=== PATIENT | male | born 1960 | race Caucasian/White ===

== ENCOUNTER 2017-09-17 22:31 | Emergency (ER) | payer OTHER ==
[2017-09-17] MEDS ORDERED: HYDROCODONE/APAP 5/325 TAB PO ONE (22:48)
[2017-09-17] MEDS ORDERED: traMADol 50 MG TAB PO ONE (22:49)
--- NOTE | 2017-09-17 22:49 | EDPHY ---
H & P Stated Complaint: fall off ladder on to foot r heel pain Source: Patient - Personal History Current Tetanus/Diphtheria Vaccine: Yes Current Tetanus Diphtheria and Acellular Pertussis (TDAP): Yes - Medical/Surgical History Hx Asthma: No Hx Chronic Respiratory Disease: No Hx Diabetes: No Hx Cardiac Disease: No Hx Renal Disease: No Hx Cirrhosis: No Hx Alcoholism: No Hx HIV/AIDS: No Hx Splenectomy or Spleen Trauma: No Other PMH: pmh- hld. KNEE SURGERY. l femur fx misha. r ankle - Social History Smoking Status: Former smoker Time Seen by Provider: 09/17/17 22:48 HPI/ROS: HPI: This is a 57-year-old male presents with Chief Complaint: fall off ladder on to foot right heel pain Location: Right heel Quality: Injury Duration: 1 hour prior to arrival Signs and Symptoms: No bleeding, no radiation, no numbness, no weakness, no tingling, no decreased range of motion Timing: Acute Severity: Moderate Context: Patient reports he was on a ladder barefoot this evening trying to fix a heater, when he lost his footing, fell from 3-5 ladder rings and then landed directly on his right heel. He felt immediate, constant, severe, nonradiating pain in his right heel and around his medial malleolus. Pain was worsened with weight-bearing. He has a history of what seems to be of fibular fracture; status post ORIF greater than 10 years ago. He denies any dizziness/ head injury/LOC. Modifying Factors: He has not tried any [id number] medications or applied ice Comment: ROS: see HPI Constitutional: No fever, no chills, no weight loss Eyes: No blurred vision Respiratory: No shortness of breath, no cough Cardiovascular: No chest pain Gastrointestinal: No nausea, no vomiting no diarrhea Genitourinary: No dysuria Extremities: No myalgias Neurologic: No weakness, no numbness Skin: No rashes Hematologic: No bruising, no bleeding MEDICAL/SURGICAL/SOCIAL HISTORY: Medical history: Hyperlipidemia Surgical history: KNEE SURGERY, l femur fx misha, r ankle Social history: . CONSTITUTIONAL: Adult white male, awake and alert, no obvious distress HEENT: Atraumatic and normocephalic, PERRL, EOMI. Wears glasses. no globe entrapment, no raccoon eyes. no Mon signs.Tympanic membranes clear. No tympanic membrane rupture. Nares patent; no septal hematoma. Oropharynx clear, no exudate and moist pink mucosa. No malocclusion. no dental trauma. Airway patent. No lymphadenopathy. NECK: supple, no midline tenderness, flexion 45 degrees, extension 45 degrees, right and left lateral flexion 45 degrees. No meningismus. Cardiovascular: Normal S1/S2, regular rate, regular rhythm, without murmur rub or gallop. PULMONARY/CHEST: Symmetrical and nontender. no crepitus. Clear to auscultation bilaterally. Good air movement. No accessory muscle usage. ABDOMEN: Soft, nondistended, nontender, no ecchymosis, no rebound, no guarding , no peritoneal signs, no masses or organomegaly. No CVAT. PELVIC: no pain with rocking; bilateral hips flexion 125 degrees, extension 30 degrees, with no pain internal rotation and no pain external rotation. BACK: No midline tenderness, no paraspinous spasm, deep tendon reflexes 2/2, no pain with straight leg raise EXTREMITIES: 2/2 pulses, Right Ankle; tenderness to palpation directly over the calcaneus-no ecchymosis/deformity appreciated. Plantar flexion to 50, dorsiflexion to 20. Foot inversion to 35 degree. no pain Anterior talofibular ligament. no pain Calcaneofibular ligament, no pain posterior talofibular ligament, no pain posterior inferior tibiofibular ligament Achilles tendon intact. no deformities, no clubbing, no cyanosis or edema. NEUROLOGICAL: no focal neuro deficits. GCS 15. Light touch sensation intact. SKIN: Warm and dry, no erythema. no rash. Good capillary refill. ([place]) Constitutional: Initial Vital Signs Temperature (C) 36.6 C 09/17/17 22:37 Heart Rate 70 09/17/17 22:37 Respiratory Rate 18 09/17/17 22:37 Blood Pressure 144/84 H 09/17/17 22:37 O2 Sat (%) 95 09/17/17 22:37 O2 Delivery Mode Room Air Allergies/Adverse Reactions: No Known Allergies Allergy (Unverified 12/28/12 13:59) Home Medications: Medication Instructions Recorded Herbals/Supplements -Info Only 1 ea PO DAILY 08/31/16 Multivitamins [Multivitamin (*)] 1 each PO DAILY 08/31/16 Niacin [Niacin 500 mg (*)] 500 mg PO DAILY 08/31/16 QUEtiapine FUMARATE [Seroquel 50 50 mg PO HS 08/31/16 mg (*)] Rosuvastatin Calcium [Crestor 20mg 20 mg PO Q2D 08/31/16 (*)] lamoTRIgine [Lamictal] 150 mg PO BID 08/31/16 oxyCODONE/APAP 5/325 [Percocet 1 - 2 tab PO Q4H PRN #12 tab 09/18/17 5/325 (*)] Medical Decision Making - Diagnostics Imaging Results: Imaging Impressions Calcaneus X-Ray 09/17/17 22:42 Impression: Comminuted fractures involving the mid body and posterior calcaneus. Foot X-Ray 09/17/17 22:42 Impression: Comminuted calcaneal fractures. Procedures: Procedure: Splint placement. A right posterior and stirrup ankle orthoglass splint was applied by the Emergency Room biological lab technician. After application of the splint I returned and re- examined the patient. The splint was adequately immobilizing the joint and distal to the splint the patient's circulation and sensation was intact. (Lucy Gbariel) ED Course/Re-evaluation: X-ray and oral medication ordered No signs of neurovascular compromise/tenting of skin/compartment syndrome/ extremities and joints examined above and below area of concern and are neurovascularly intact. ice pack applied and Given p.o. Ultram with adequate relief of pain. Reviewed x-rays via PACs and with attending shows comminuted fractures in the calcaneus; no talus fracture seen Placed in a posterior/stirrup ankle splint, crutches, nonweightbearing, close Ortho follow-up (Lucy Gabriel) Differential Diagnosis: Differential diagnosis includes but is not limited to calcaneal fracture, heel contusion, ankle sprain, tibia fracture, fibula fracture, nerve injury. (Lucy Gabriel) Other Provider: PHYSICIAN DOCUMENTATION: The patient was evaluated and managed by the Physician Tattoo Identifier. My co- signature indicates that I have reviewed this chart and I agree with the findings and plan of care as documented. I am the secondary supervising physician. (Libertad Schwartz) - Data Points Medications Given: Discontinued Medications Hydrocodone Bitart/Acetaminophen ([place] 5/325) 1 tab PO EDNOW ONE Stop: 09/17/17 22:49 Last Admin: 09/17/17 22:58 Dose: Not Given Oxycodone/Acetaminophen (Percocet 5/325) 1 tab PO EDNOW ONE Stop: 09/17/17 23:58 Last Admin: 09/18/17 00:07 Dose: 1 tab Oxycodone/Acetaminophen (Percocet 5/325mg Prepack#4) 1 btl TAKEHOME EDNOW ONE Stop: 09/17/17 23:58 Last Admin: 09/18/17 00:26 Dose: 1 btl Tramadol HCl (Ultram) 100 mg PO EDNOW ONE Stop: 09/17/17 22:50 Last Admin: 09/17/17 22:53 Dose: 100 mg Departure - Departure Disposition: Home, Routine, Self-Care Clinical Impression: Closed right calcaneal fracture Qualifiers: Encounter type: initial encounter Calcaneus location: unspecified portion of calcaneus Fracture alignment: nondisplaced Qualified Code(s): S92.001A - Unspecified fracture of right calcaneus, initial encounter for closed fracture Condition: Good Instructions: Oxycodone/Acetaminophen (By mouth), Calcaneal Fracture (ED) Additional Instructions: Keep the splint in place and dry until seen by Orthopedics for follow-up. Use crutches as you are to be nonweightbearing. Elevate extremity as much as possible to reduce swelling. Follow up with Orthopedics in 2-3 days at which time they will evaluate and recommend with you if conservative management versus surgery is indicated. Referrals: Carmelo Cutelr MD [Medical Doctor] - As per Instructions Prescriptions: oxyCODONE/APAP 5/325 [Percocet 5/325 (*)] 1 - 2 tab PO Q4H PRN #12 tab PRN Reason: Pain, Severe
[2017-09-17] MEDS ORDERED: OXYCODONE/APAP 5/325 TAB PO ONE (23:57)
[2017-09-17] MEDS ORDERED: OXYCODONE/APAP 5/325MG PREPACK#4 BTL TAKEHOME ONE (23:57)
[2017-09-18 00:48] VITALS: BP 124/69; PULSE 63; RESP 20; TEMP 98.2; O2SAT 94
== END 2017-09-18 00:36 | disposition home or self-care (01) ==
DX: S92.001A Unspecified fracture of right calcaneus, initial encounter for closed fracture (principal); Z87.891 Personal history of nicotine dependence; W11.XXXA Fall on and from ladder, initial encounter; Y99.8 Other external cause status; Y93.89 Activity, other specified